=== PATIENT | male | born 1970 | race Caucasian/White ===

== ENCOUNTER 2016-06-29 06:54 | Day surgery (SDC) | payer BC ==
[~2016-06-29] VITALS: Ht 193 cm; Wt 171.5 kg
[~2016-06-29 06:54] MED LIST: CIPROFLOXACIN500 M1 PO; ELIQUIS5 MG PO; ERGOCALCIF50000 UNIT PO; FUROSEMIDE20 MG PO; LANTUS 10100 UNITS/ SC; LANTUS 3 M100 UNITS1 SC; LEVEMIR100 UNIT/2 SC; LISINOPRIL10 MG PO; LISINOPRIL20 MG PO; METRONIDAZOLE500 MG PO; ZESTRIL10 MG PO
[2016-06-29] MEDS ORDERED: ASPIRIN325 MG PO (08:11)
[2016-06-29 08:24] LABS: POINT-OF-CARE METER ID UU13113696
== END 2016-06-29 14:55 | disposition home or self-care (01) ==
LOC: CATH 06:54
PROVIDERS: Internal Medicine Interventional Cardiology
DX: I42.9 Cardiomyopathy, unspecified (principal); I11.0 Hypertensive heart disease with heart failure; R94.30 Abnormal result of cardiovascular function study, unspecified; E66.01 Morbid (severe) obesity due to excess calories; Z68.42 Body mass index [BMI] 45.0-49.9, adult; E11.65 Type 2 diabetes mellitus with hyperglycemia; G47.33 Obstructive sleep apnea (adult) (pediatric); Z86.711 Personal history of pulmonary embolism; Z79.01 Long term (current) use of anticoagulants; Z79.4 Long term (current) use of insulin; Z80.7 Family history of other malignant neoplasms of lymphoid, hematopoietic and related tissues
CPT/HCPCS: 82948; C1769; C1887; C1894; J1644; J2250; J3010; J7050

== ENCOUNTER → 2016-09-15 | Outpatient (CLI) | payer BC ==
[~2016-09-15] MED LIST changes: +ASPIRIN325 MG PO
== END | disposition home or self-care (01) ==
LOC: CDC 08:26
DX: C18.9 Malignant neoplasm of colon, unspecified (principal); I49.3 Ventricular premature depolarization; I45.9 Conduction disorder, unspecified
CPT/HCPCS: 93000

== ENCOUNTER 2016-09-26 05:31 | Inpatient (IN) | payer BC ==
[~2016-09-26] VITALS: Ht 193 cm; Wt 180.7 kg
[~2016-09-26 05:31] MED LIST changes: +LIPITOR20 MG PO; +PRINZIDE 20-121 EACH PO
[2016-09-26 06:08] VITALS: BP 143/81
[2016-09-26 06:43] LABS: POINT-OF-CARE METER ID UU14174212; POINT-OF-CARE USER ID AHSRSCSLC11
[2016-09-26 13:58] LABS: POINT-OF-CARE METER ID UU13113675; POINT-OF-CARE USER ID 515036437
[2016-09-26 15:42] VITALS: BP 124/66
[2016-09-26 18:14] LABS: POINT-OF-CARE METER ID UU13113725
[2016-09-26 19:20] VITALS: BP 132/74
[2016-09-26 23:17] VITALS: BP 124/75
[2016-09-27 00:37] LABS: POINT-OF-CARE USER ID STWHLR41
[2016-09-27 05:11] VITALS: BP 118/65
[2016-09-27 07:15] LABS: ALKALINE PHOSPHATASE 76 IU/L (3-129); ANION GAP 9 MEQ/L (2-14); CHLORIDE 100 MEQ/L (99-109); GFR ESTIMATE (CALCULATED) > 59 mL/min/; GLUCOSE 120 mg/dL (70-99); MAGNESIUM 1.7 mg/dl (1.3-2.7); POTASSIUM 4.1 MEQ/L (3.7-5.4); SAMPLE HEMOLYSIS CHECK 0; SAMPLE ICTERIC CHECK 0; SAMPLE LIPEMIA CHECK 0; SODIUM 137 MEQ/L (136-147); TOTAL BILIRUBIN 0.4 MG/DL (0.0-1.0); UREA NITROGEN (BUN) 12 mg/dL (9-23)
[2016-09-27 07:41] LABS: EOSINOPHIL (%) 0.2 % (0-5); HEMATOCRIT 27.6 % (38.0-50.0); IMMATURE GRANULOCYTE (%) 0.4 % (0.0-0.7); IMMATURE GRANULOCYTE COUNT 0.1 K/uL; INSTRUMENT ABS NEUTROPHIL CT 10.1 K/uL; LYMPHOCYTE COUNT 1.4 K/uL (1.0-2.8); MCH 19.1 PG (29.0-34.0); MCV 65.9 FL (86-99); MEAN PLAT.VOLUME 11.3 uM^3 (9.0-12.4); MONOCYTE (%) 7.7 % (3-12); NEUTROPHIL (%) 80.4 % (45-76); NEUTROPHIL COUNT 10.1 K/uL (1.8-6.4); PLATELET COUNT 310 K/uL (156-360); RBC DIS.WIDTH-CV 16.5 % (11.8-14.6); RBC DIS.WIDTH-SD 38.4 % (39-53); RED BLOOD COUNT 4.19 M/uL (4.00-5.50); WHITE BLOOD COUNT 12.6 K/uL (4.1-10.2)
[2016-09-27 08:10] VITALS: BP 115/61
[2016-09-27 11:48] VITALS: BP 135/73
[2016-09-27 15:59] VITALS: BP 149/96
[2016-09-27 16:50] LABS: POINT-OF-CARE METER ID UU13113725
[2016-09-27 17:37] LABS: HEMATOCRIT 30.1 % (38.0-50.0); MCH 18.9 PG (29.0-34.0); MCHC 28.2 G/DL (30.0-36.0); RBC DIS.WIDTH-CV 16.7 % (11.8-14.6); RBC DIS.WIDTH-SD 39.6 % (39-53); RED BLOOD COUNT 4.49 M/uL (4.00-5.50); WHITE BLOOD COUNT 14.1 K/uL (4.1-10.2)
[2016-09-27 17:38] LABS: EOSINOPHIL (%) 0.3 % (0-5); IMMATURE GRANULOCYTE (%) 0.5 % (0.0-0.7); IMMATURE GRANULOCYTE COUNT 0.1 K/uL; INSTRUMENT ABS NEUTROPHIL CT 11.4 K/uL; LYMPHOCYTE COUNT 1.5 K/uL (1.0-2.8); MONOCYTE (%) 7.2 % (3-12); NEUTROPHIL (%) 81.2 % (45-76); NEUTROPHIL COUNT 11.4 K/uL (1.8-6.4); PLATELET COUNT 345 K/uL (156-360)
[2016-09-27 19:23] VITALS: BP 151/65
[2016-09-27 23:14] VITALS: BP 155/83
[2016-09-27 23:31] LABS: POINT-OF-CARE METER ID UU13113725
[2016-09-28 03:33] VITALS: BP 151/91
[2016-09-28 05:36] LABS: POINT-OF-CARE METER ID UU13113725
[2016-09-28 07:48] VITALS: BP 136/82
[2016-09-28 08:03] LABS: BASOPHIL COUNT 0.1 K/uL (0-0.1); EOSINOPHIL (%) 1.3 % (0-5); EOSINOPHIL COUNT 0.2 K/uL (0-0.3); HEMATOCRIT 30.5 % (38.0-50.0); IMMATURE GRANULOCYTE (%) 0.8 % (0.0-0.7); IMMATURE GRANULOCYTE COUNT 0.1 K/uL; INSTRUMENT ABS NEUTROPHIL CT 12.2 K/uL; LYMPHOCYTE COUNT 1.6 K/uL (1.0-2.8); MCHC 28.9 G/DL (30.0-36.0); MEAN PLAT.VOLUME 10.6 uM^3 (9.0-12.4); MONOCYTE (%) 5.6 % (3-12); MONOCYTE COUNT 0.8 K/uL (0-0.8); NEUTROPHIL (%) 81.5 % (45-76); NEUTROPHIL COUNT 12.2 K/uL (1.8-6.4); PLATELET COUNT 366 K/uL (156-360); RBC DIS.WIDTH-CV 16.6 % (11.8-14.6); RBC DIS.WIDTH-SD 38.7 % (39-53); RED BLOOD COUNT 4.62 M/uL (4.00-5.50); WHITE BLOOD COUNT 14.9 K/uL (4.1-10.2)
[2016-09-28 08:24] LABS: ALKALINE PHOSPHATASE 76 IU/L (3-129); ANION GAP 9 MEQ/L (2-14); CHLORIDE 101 MEQ/L (99-109); GFR ESTIMATE (CALCULATED) > 59 mL/min/; GLUCOSE 132 mg/dL (70-99); MAGNESIUM 1.7 mg/dl (1.3-2.7); POTASSIUM 3.9 MEQ/L (3.7-5.4); SAMPLE HEMOLYSIS CHECK 0; SAMPLE ICTERIC CHECK 0; SAMPLE LIPEMIA CHECK 0; SODIUM 138 MEQ/L (136-147); TOTAL BILIRUBIN 0.4 MG/DL (0.0-1.0); UREA NITROGEN (BUN) 10 mg/dL (9-23)
[2016-09-28 11:49] LABS: POINT-OF-CARE METER ID UU13113725
[2016-09-28 15:24] VITALS: BP 139/91
[2016-09-28 15:35] LABS: ADD MIUA? YES; BILIRUBIN NEGATIVE; BLOOD LARGE; COLOR YELLOW ((YELLOW)); GLUCOSE (STRIP) NEGATIVE; KETONES 20; LEUKOCYTES NEGATIVE; NITRITE NEGATIVE; PROTEIN (STRIP) NEGATIVE; SPECIFIC GRAVITY 1.015 (1.000-1.030); UROBILINOGEN 0.2 MG/DL (0.2-1.0)
[2016-09-28 15:53] LABS: BACTERIA NONE SEEN /HPF; EPITHELIAL CELLS RARE /HPF; MUCUS TRACE /LPF; WHITE BLOOD CELLS 0-5 /HPF (0-5)
[2016-09-28 16:46] LABS: POINT-OF-CARE METER ID UU13113725
[2016-09-28 19:50] VITALS: BP 144/86
[2016-09-29] VITALS (7 sets, daily range): BP systolic 129–138; BP diastolic 64–87
[2016-09-29 01:03] LABS: POINT-OF-CARE METER ID UU13113725
[2016-09-29 05:21] LABS: POINT-OF-CARE METER ID UU13113725
[2016-09-29 06:42] LABS: POINT-OF-CARE METER ID UU13113725
[2016-09-29 07:04] LABS: EOSINOPHIL (%) 2.1 % (0-5); EOSINOPHIL COUNT 0.2 K/uL (0-0.3); IMMATURE GRANULOCYTE (%) 0.5 % (0.0-0.7); IMMATURE GRANULOCYTE COUNT 0.1 K/uL; INSTRUMENT ABS NEUTROPHIL CT 8.3 K/uL; LYMPHOCYTE COUNT 1.2 K/uL (1.0-2.8); MONOCYTE (%) 6.3 % (3-12); MONOCYTE COUNT 0.7 K/uL (0-0.8); NEUTROPHIL COUNT 8.3 K/uL (1.8-6.4)
[2016-09-29 07:20] LABS: ANION GAP 9 MEQ/L (2-14); CHLORIDE 99 MEQ/L (99-109); GFR ESTIMATE (CALCULATED) > 59 mL/min/; GLUCOSE 117 mg/dL (70-99); MAGNESIUM 1.8 mg/dl (1.3-2.7); POTASSIUM 3.4 MEQ/L (3.7-5.4); SAMPLE HEMOLYSIS CHECK 0; SAMPLE ICTERIC CHECK 0; SAMPLE LIPEMIA CHECK 0; SODIUM 137 MEQ/L (136-147); UREA NITROGEN (BUN) 10 mg/dL (9-23)
[2016-09-29 07:36] LABS: HEMATOCRIT 27.2 % (38.0-50.0); MCH 18.9 PG (29.0-34.0); MCHC 28.7 G/DL (30.0-36.0); MEAN PLAT.VOLUME 11.6 uM^3 (9.0-12.4); PLAT.SUFFICIENCY ADEQUATE; PLATELET COUNT 289 K/uL (156-360); RBC DIS.WIDTH-CV 16.6 % (11.8-14.6); RBC DIS.WIDTH-SD 38.9 % (39-53); RED BLOOD COUNT 4.12 M/uL (4.00-5.50); WHITE BLOOD COUNT 10.5 K/uL (4.1-10.2)
[2016-09-29 12:14] LABS: POINT-OF-CARE METER ID UU13113725
[2016-09-30 03:21] VITALS: BP 136/76
[2016-09-30 07:03] VITALS: BP 139/74
[2016-09-30 11:31] VITALS: BP 141/76
[2016-09-30 12:33] LABS: POINT-OF-CARE METER ID UU13113725
== END 2016-09-30 15:46 | disposition home or self-care (01) | DRG 330 ==
LOC: 2SOUTH → 5EAST 05:31 → 2SOUTH 05:31 → 5EAST 15:13 → 2SOUTH 15:43 → 5EAST 09-30 15:46
PROVIDERS: Surgery
PROC: 0DTF4ZZ Resection of Right Large Intestine, Percutaneous Endoscopic Approach (ICD-10-PCS; principal; 2016-09-26)
DX: C18.0 Malignant neoplasm of cecum (principal); Z68.42 Body mass index [BMI] 45.0-49.9, adult; E11.9 Type 2 diabetes mellitus without complications; R00.0 Tachycardia, unspecified; D72.829 Elevated white blood cell count, unspecified; E66.01 Morbid (severe) obesity due to excess calories; R91.1 Solitary pulmonary nodule; Z86.711 Personal history of pulmonary embolism; Z79.4 Long term (current) use of insulin; I10 Essential (primary) hypertension
CPT/HCPCS: 71020; 71275; 74177; 80048; 80053; 81003; 82948; 83735; 84100; 85025; 85025 91; 88305; 88309; 94799; J0330; J1170; J1650; J1815; J2175; J2405; J2543; J2710; J3010; J7040; J7050; J7120; S0030

== ENCOUNTER → 2017-04-09 | Outpatient (CLI) | payer BC ==
[~2017-04-09] VITALS: Ht 193 cm; Wt 181.8 kg
[2017-04-09 13:39] LABS: POINT-OF-CARE METER ID UU14107333
[2017-04-09 13:48] LABS: ANION GAP 8 MEQ/L (2-14); CHLORIDE 100 MEQ/L (99-109); POTASSIUM 3.9 MEQ/L (3.7-5.4); SAMPLE HEMOLYSIS CHECK 0; SAMPLE ICTERIC CHECK 0; SAMPLE LIPEMIA CHECK 0; SODIUM 137 MEQ/L (136-147)
[2017-04-09 13:54] LABS: GFR ESTIMATE (CALCULATED) > 59 mL/min/; GLUCOSE 119 mg/dL (70-99); UREA NITROGEN (BUN) 15 mg/dL (9-23)
== END | disposition home or self-care (01) ==
LOC: AMB 12:56
PROVIDERS: Internal Medicine Gastroenterology
PROC: 0DJD8ZZ Inspection of Lower Intestinal Tract, Via Natural or Artificial Opening Endoscopic (ICD-10-PCS; principal; 2017-04-09)
DX: Z08 Encounter for follow-up examination after completed treatment for malignant neoplasm (principal); Z85.030 Personal history of malignant carcinoid tumor of large intestine; Z86.010 Personal history of colon polyps; K57.30 Diverticulosis of large intestine without perforation or abscess without bleeding; K64.8 Other hemorrhoids; E11.9 Type 2 diabetes mellitus without complications; I11.0 Hypertensive heart disease with heart failure; G47.33 Obstructive sleep apnea (adult) (pediatric); E66.9 Obesity, unspecified; Z68.42 Body mass index [BMI] 45.0-49.9, adult; Z86.711 Personal history of pulmonary embolism; Z79.4 Long term (current) use of insulin; Z79.01 Long term (current) use of anticoagulants
CPT/HCPCS: 80048; 82948; 93005; J2250